=== PATIENT | male | born 1965 | race Caucasian/White ===

== ENCOUNTER → 2019-10-22 | Day surgery (SDC) | payer BC, OTHER ==
[~2019-10-22] MED LIST: ATORVASTATIN CA20 MG PO; HYOSCYAMINE 0.125 MG TAB ONE; LIDOCAINE HCL 2% LOCAL INJ 5 ML SDV VIAL INJ ONE; MULTI-VITAMIN1 EACH PO; PROPOFOL IV EMULSION 10 MG/ML 20 ML VIAL ONE; VALSARTAN-HCTZ1 EAC1 PO
[2019-10-22 10:30] VITALS: BP 115/85
--- NOTE | 2019-10-22 10:37 | Operative Report ---
DATE OF PROCEDURE: 10/22/2019 SURGEON: Yaakov Davies MD PROCEDURE: Colonoscopy with polypectomy and biopsies. INDICATION FOR COLONOSCOPY: Surveillance colonoscopy, personal history of colon polyps. MEDICATIONS: The patient was done under MAC. Please see anesthesiologist's note. PROCEDURE IN DETAIL: With the patient in left lateral decubitus position, the flexible fiberoptic Olympus colonoscope was inserted into the rectum with ease and advanced all the way to the cecum. A minute polyp was noted in the cecum and that was removed per the cold biopsy forceps. The ascending, transverse, descending, and sigmoid colon appeared to be within normal limits. Some mild patchy inflammatory changes were noted in the rectum and biopsies were obtained. The scope was then retroflexed into the distal rectum, small internal hemorrhoids were noted, none of which was actively bleeding. The scope was then straightened out. It was subsequently withdrawn. The patient tolerated the procedure well. IMPRESSION: 1. Cecal polyp, minute, removed per cold biopsy forceps. 2. Proctitis, mild. 3. Internal hemorrhoids, none actively bleeding. PLAN: Follow up histology. Initiate high-fiber, low-fat diet. Initiate high-fiber supplement. The patient might benefit from a followup colonoscopy in 5 years. Yaakov Davies MD [facility] [place] /[id number] cc: Emerson Alieca MD
== END | disposition home or self-care (01) ==
LOC: OR 08:24 → EDBD 09:00
PROVIDERS: ATTEND Internal Medicine Gastroenterology
DX: Z09 Encounter for follow-up examination after completed treatment for conditions other than malignant neoplasm (principal); K63.5 Polyp of colon; K62.89 Other specified diseases of anus and rectum; K64.8 Other hemorrhoids; I10 Essential (primary) hypertension; E78.5 Hyperlipidemia, unspecified; Z01.810 Encounter for preprocedural cardiovascular examination; Z01.812 Encounter for preprocedural laboratory examination; Z11.59 Encounter for screening for other viral diseases; Z68.31 Body mass index [BMI] 31.0-31.9, adult
CPT/HCPCS: 45380; 87635; 93005; J2001; J2704

== ENCOUNTER 2022-03-08 09:00 | Outpatient (RCR) | payer BC ==
[~2022-03-08 09:00] MED LIST changes: -HYOSCYAMINE 0.125 MG TAB ONE; -LIDOCAINE HCL 2% LOCAL INJ 5 ML SDV VIAL INJ ONE; -PROPOFOL IV EMULSION 10 MG/ML 20 ML VIAL ONE
== END 2022-03-12 ==
LOC: PT 09:00
PROVIDERS: ATTEND Specialist
DX: M25.561 Pain in right knee (principal); M62.81 Muscle weakness (generalized)

== ENCOUNTER 2022-03-30 07:59 | Outpatient (RCR) | payer BC | END 2022-04-11 | LOC: PT 07:59 | PROVIDERS: ATTEND Specialist | DX: M25.561 Pain in right knee (principal); M62.81 Muscle weakness (generalized) ==